=== PATIENT | male | born 2000 | race African-American/Black ===

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

== ENCOUNTER 2020-01-10 09:30 | Outpatient (CLI) | payer BC | END 2020-01-10 09:31 | disposition home or self-care (01) | LOC: COV 09:30 | PROVIDERS: ATTEND Family Medicine | DX: Z20.828 Contact with and (suspected) exposure to other viral communicable diseases (principal) ==

== ENCOUNTER 2020-01-29 12:59 | Outpatient (CLI) | payer BC ==
--- NOTE | 2020-01-29 15:23 | XRAY Report ---
PROCEDURE: Knee 3 View LT INDICATIONS: L KNEE PX TECHNIQUE: 3 views of the left knee were acquired. COMPARISON: None. FINDINGS: Bones: No acute fractures or dislocations. No suspicious bony lesions. Soft tissues: Small joint effusion. No suspicious soft tissue calcifications. IMPRESSION: No acute osseous abnormality. Small joint effusion. If there is continued clinical annelise rn or persistent symptoms, further evaluation with CT or MRI may be obtained. Reviewed by: Savage Clark MD on 01/29/2020 3:21 PM [facility] Approved by: Savage Clark MD on 01/29/2020 3:21 PM PST Station ID: [id number]
== END 2020-01-29 23:59 | disposition home or self-care (01) ==
LOC: DI.N 12:59
PROVIDERS: ATTEND Family Medicine
DX: M25.562 Pain in left knee (principal); M25.462 Effusion, left knee

== ENCOUNTER 2020-10-26 08:00 | Outpatient (CLI) | payer BC ==
[2020-10-26 13:49] LABS: BASOPHILS # (AUTO) 0.1 10^3/uL (0.0-0.1); BASOPHILS % (AUTO) 0.6 %; EOSINOPHILS # (AUTO) 0.1 10^3/uL (0.0-0.7); EOSINOPHILS % (AUTO) 0.7 %; HCT - HEMATOCRIT 42.8 % (42.0-52.0); LYMPHOCYTES # (AUTO) 2.8 10^3/uL (1.5-3.5); LYMPHOCYTES % (AUTO) 31.6 %; MEAN CORPUSCULAR HEMOGLOBIN 30.1 pg (27.0-31.0); MEAN CORPUSCULAR HGB CONC 32.7 g/dL (32.0-36.0); MEAN PLATELET VOLUME 11.2 fL (7.4-11.4); MONOCYTES # (AUTO) 0.5 10^3/uL (0.0-1.0); MONOCYTES % (AUTO) 5.4 %; NEUTROPHILS # (AUTO) 5.4 10^3/uL (1.5-6.6); NEUTROPHILS % (AUTO) 61.5 %; PLT - PLATELET COUNT 271 10^3/uL (130-450); RED BLOOD COUNT 4.65 10^6/uL (4.70-6.10); RED CELL DISTRIBUTION WIDTH 13.1 % (12.0-15.0); WHITE BLOOD COUNT 8.7 x10^3/uL (4.8-10.8)
[2020-10-26 14:00] LABS: ALBUMIN 4.8 g/dL (3.2-5.5); ALBUMIN/GLOBULIN RATIO 1.5 (1.0-2.2); BILIRUBIN,TOTAL 0.9 mg/dL (0.2-1.0); CALCIUM 9.7 mg/dL (8.5-10.3); CREATININE 0.9 mg/dL (0.6-1.2); POTASSIUM 3.7 mmol/L (3.5-5.0); TOTAL PROTEIN 8.1 g/dL (6.7-8.2)
== END 2020-10-26 23:59 | disposition home or self-care (01) ==
LOC: LAB.N 08:00
PROVIDERS: ATTEND Nurse Practitioner
DX: R20.2 Paresthesia of skin (principal)
CPT/HCPCS: 36415; 80053; 82550; 85025

== ENCOUNTER 2022-03-24 01:48 | Emergency (ER) | payer BC, OTHER ==
[2022-03-24 02:15] LABS: BASOPHILS # (AUTO) 0.2 10^3/uL (0.0-0.1); BASOPHILS % (AUTO) 1.3 %; EOSINOPHILS # (AUTO) 0.7 10^3/uL (0.0-0.7); EOSINOPHILS % (AUTO) 6.1 %; HCT - HEMATOCRIT 43.3 % (42.0-52.0); HGB - HEMOGLOBIN 14.1 g/dL (14.0-18.0); LYMPHOCYTES # (AUTO) 4.8 10^3/uL (1.5-3.5); LYMPHOCYTES % (AUTO) 41.1 %; MEAN CORPUSCULAR HEMOGLOBIN 29.6 pg (27.0-31.0); MEAN CORPUSCULAR HGB CONC 32.6 g/dL (32.0-36.0); MEAN CORPUSCULAR VOLUME 90.8 fL (80.0-94.0); MEAN PLATELET VOLUME 10.1 fL (7.4-11.4); MONOCYTES % (AUTO) 8.4 %; NEUTROPHILS % (AUTO) 42.8 %; PLT - PLATELET COUNT 306 10^3/uL (130-450); RED BLOOD COUNT 4.77 10^6/uL (4.70-6.10); RED CELL DISTRIBUTION WIDTH 12.8 % (12.0-15.0); WHITE BLOOD COUNT 11.7 x10^3/uL (4.8-10.8)
[2022-03-24 02:28] LABS: ALBUMIN 4.4 g/dL (3.2-5.5); ALBUMIN/GLOBULIN RATIO 1.2 (1.0-2.2); BILIRUBIN,TOTAL 0.6 mg/dL (0.2-1.0); CALCIUM 9.4 mg/dL (8.5-10.3); POTASSIUM 3.3 mmol/L (3.5-5.0); TOTAL PROTEIN 8.1 g/dL (6.7-8.2)
[2022-03-24] MEDS ORDERED: KETOROLAC 15 MG/ML VIAL IVP STA (02:39)
[2022-03-24] MEDS ORDERED: SODIUM CHLORIDE 0.9% 1,000 ML IV STA ×2 (02:39→04:27)
--- NOTE | 2022-03-24 02:42 | ED Physician Documentation ---
History of Present Illness - Stated complaint Stated Complaint: ABD PX - Chief complaint Chief Complaint: Abd Pain - History obtained from History obtained from: Patient - Additonal information Additional information: 21-year-old male with history of kidney stones presents with right flank pain radiating to right lower quadrant starting 1 hour prior to arrival, sudden onset, sharp, 8 out of 10 severity. Denies urinary symptoms, fever. Review of Systems Constitutional: denies: Fever GI: reports: Abdominal Pain. denies: Nausea, Vomiting, Diarrhea : denies: Dysuria PD PAST MEDICAL HISTORY - Past Medical History Cardiovascular: None Respiratory: None Neuro: None Endocrine/Autoimmune: None GI: None : Kidney stones HEENT: None Psych: ADD/ADHD Musculoskeletal: None Derm: None - Past Surgical History Past Surgical History: No - Present Medications Home Medications: Ambulatory Orders Medication Instructions Recorded Confirmed Dextroamphetamine/Amphetamine 50 mg DAILY 08/18/17 08/18/17 [Mydayis ER 50 mg Capsule] Guanfacine HCl [Intuniv] 1 mg DAILY 08/18/17 08/18/17 HYDROcod/ACETAM 5/325 [[place] 5/325] 1 - 2 ea PO Q6H PRN #15 tablet 08/18/17 Ibuprofen [Motrin] 800 mg PO Q8H PRN #30 tablet 08/18/17 ondansetron HCL [Zofran] 4 mg PO Q6H PRN #10 tablet 08/18/17 Hydrocodone/Acetaminophen 1 each PO Q6HR PRN #10 tablet 11/05/19 [Hydrocodone-Acetamin 5-325 mg] - Allergies Allergies/Adverse Reactions: Allergies Allergy/AdvReac Type Severity Reaction Status Date / Time No Known Drug Allergies Allergy Verified 03/24/22 01:59 - Social History Does the pt smoke?: No Smoking Status: Never smoker Does the pt drink ETOH?: No Does the pt have substance abuse?: No - Immunizations Immunizations are current?: Yes - POLST Patient has POLST: No PD ED PE NORMAL - Vitals Vital signs reviewed: Yes - General General: Alert and oriented X 3, No acute distress, Well developed/nourished - HEENT HEENT: Atraumatic, PERRL, EOMI - Abdomen Abdomen: Non tender, Non distended, Other (Discomfort right lower quadrant) - Back Back: No CVA TTP - Derm Derm: Normal color, Warm and dry Results - Vitals Vitals: Vital Signs - 24 hr 03/24/22 03/24/22 01:51 04:52 Temperature 36.2 C L Heart Rate 88 67 Respiratory 22 18 Rate Blood Pressure 133/102 H 136/81 H O2 Saturation 98 100 Oxygen O2 Source Room air - Labs Labs: Laboratory Tests 03/24/22 03/24/22 03/24/22 02:07 02:07 04:47 WBC 11.7 H RBC 4.77 Hgb 14.1 Hct 43.3 MCV 90.8 MCH 29.6 MCHC 32.6 RDW 12.8 Plt Count 306 MPV 10.1 Neut # (Auto) 5.0 Lymph # (Auto) 4.8 H [place] # (Auto) 1.0 Eos # (Auto) 0.7 Baso # (Auto) 0.2 H Absolute Nucleated RBC 0.00 Nucleated RBC % 0.0 Sodium 139 Potassium 3.3 L Chloride 103 Carbon Dioxide 24 Anion Gap 12.0 BUN 12 Creatinine 1.0 Estimated GFR (MDRD) 114 Glucose 122 H Calcium 9.4 Total Bilirubin 0.6 AST 51 H ALT 21 Alkaline Phosphatase 60 Total Protein 8.1 Albumin 4.4 Globulin 3.7 Albumin/Globulin Ratio 1.2 Lipase 34 Urine Color YELLOW Urine Clarity CLEAR Urine pH 6.0 Ur Specific [place] 1.010 Urine Protein NEGATIVE Urine Glucose (UA) NEGATIVE Urine Ketones NEGATIVE Urine Occult Blood LARGE H Urine Nitrite NEGATIVE Urine Bilirubin NEGATIVE Urine Urobilinogen 0.2 (NORMAL) Ur Leukocyte Esterase NEGATIVE Urine RBC TNTC H Urine WBC 0-3 Ur Squamous Epith Cells RARE Squamous Urine Bacteria Rare Urine Yeast PRESENT Ur Microscopic Review INDICATED Urine Culture Comments NOT INDICATED PD Medical Decision Making - ED course ED course: 21-year-old male presents with recurrent renal stones. renal function normal. Plan to follow-up outpatient urology. Return precautions given. Departure - Departure Clinical Impression: Kidney stones, Abdominal pain Instructions: Kidney Stones
[2022-03-24] MEDS ORDERED: iohexoL-300 100 ML VIAL ONE (02:47)
[2022-03-24] MEDS ORDERED: iohexoL-300 100 ML VIAL IVP ONE (03:28)
[2022-03-24 04:59] LABS: BILIRUBIN,URINE NEGATIVE (NEGATIVE); GLUCOSE, URINE (UA) NEGATIVE (NEGATIVE); KETONES,URINE (UA) NEGATIVE (NEGATIVE); LEUKOCYTE ESTERASE, URINE NEGATIVE (NEGATIVE); NITRITE,URINE NEGATIVE (NEGATIVE); OCCULT BLOOD,URINE LARGE (NEGATIVE); PROTEIN,URINE NEGATIVE (NEGATIVE); UROBILINOGEN,URINE 0.2 (NORMAL) E.U./dL (NORMAL)
[2022-03-24 05:07] LABS: BACTERIA,URINE Rare /HPF (None Seen); CLARITY,URINE CLEAR (CLEAR); RBC,URINE TNTC /HPF (0-5); SQUAMOUS EPITHELIAL CELL,UR RARE Squamous (<= Few); WBC,URINE 0-3 /HPF (0-3); YEAST,URINE PRESENT
[2022-03-24 05:34] VITALS: BP 144/91
--- NOTE | 2022-03-24 08:45 | CT Report ---
PROCEDURE: ABDOMEN/PELVIS W INDICATIONS: Abdominal pain, acute, nonlocalized CONTRAST: Omni 300 100ml TECHNIQUE: After the administration of IV contrast, 5 mm thick sections acquired from the diaphragms to the symp hysis. 5 mm thick coronal and sagittal reformats were acquired. For radiation dose reduction, the f ollowing was used: automated exposure control, adjustment of mA and/or kV according to patient size. COMPARISON: None. FINDINGS: Image quality: Excellent. ABDOMEN: Lung bases: Lung bases are clear. Heart size is normal. Solid organs: Liver and spleen are normal in size and enhancement. Gallbladder is unremarkable Tj iary system is non dilated. Pancreas enhances normally. No adrenal nodules. There is a 3 mm proxima l right ureteral calculus with mild hydronephrosis and proximal hydroureter. Left kidney is unremarka ble. Peritoneum and bowel: Bowel loops demonstrate normal wall thickness and caliber. No free fluid or a ir. Nodes and vessels: No retroperitoneal or mesenteric adenopathy by size criteria. Aorta and inferior vena cava are normal in size. Miscellaneous: No ventral hernias. PELVIS: Genitourinary: Bladder wall thickness is normal. Miscellaneous: No inguinal hernias or adenopathy. Bones: No suspicious bony lesions. No vertebral body compression fractures. IMPRESSION: Mild left hydronephrosis and proximal hydroureter secondary to 3 mm proximal ureteral calculus. The above findings are concordant with preliminary report. Reviewed by: Felisha Zabala MD on 03/24/2022 8:43 AM PST Approved by: Felisha Zabala MD on 03/24/2022 8:43 AM PST Station ID: [id number]
== END 2022-03-24 05:29 | disposition home or self-care (01) ==
LOC: ED 01:48
DX: N13.2 Hydronephrosis with renal and ureteral calculous obstruction (principal); Z87.442 Personal history of urinary calculi
CPT/HCPCS: 36415; 74177; 80053; 81001; 83690; 85025; 96374; 99283; 99284; Q9967; 81003; 87086

== ENCOUNTER 2022-03-25 06:12 | Emergency (ER) | payer OTHER ==
[2022-03-25 06:57] VITALS: BP 151/131
[2022-03-25] MEDS ORDERED: KETOROLAC 30 MG/ML VIAL IVP STA (07:48)
[2022-03-25] MEDS ORDERED: HYDROmorphone 1 MG/ML CARPUJECT IVP STA (07:48)
[2022-03-25] MEDS ORDERED: SODIUM CHLORIDE 0.9% 1,000 ML IV STA (07:48)
--- NOTE | 2022-03-25 08:28 | ED Physician Documentation ---
History of Present Illness - Stated complaint Stated Complaint: ABD PX - Chief complaint Chief Complaint: Abd Pain - History obtained from History obtained from: Patient - Additonal information Additional information: The patient comes to the emergency department chief complaint of right lower quadrant pain that has migrated over the last couple days from his right back and flank. The patient was diagnosed with a kidney stone a couple of days ago and has been on Flomax and narcotics at home. His last dose of Flomax was yesterday afternoon. He states he believes he is partly to blame for the pain because he went too long between doses of pain meds. However, he has noticed for an migration more anteriorly and lower. The patient denies any fevers, chills, or dysuria. He states his nausea is fairly well controlled unless he has a big wave of pain, but he has not been vomiting. Patient states he is here today because the pain suddenly got worse overnight as it moved down. He did not sleep all night and just wants some pain relief. Review of Systems Constitutional: reports: Reviewed and negative Eyes: reports: Reviewed and negative Ears: reports: Reviewed and negative Nose: reports: Reviewed and negative Throat: reports: Reviewed and negative Cardiac: reports: Reviewed and negative Respiratory: reports: Reviewed and negative GI: reports: Abdominal Pain, Nausea : reports: Reviewed and negative Skin: reports: Reviewed and negative Musculoskeletal: reports: Reviewed and negative Neurologic: reports: Reviewed and negative Psychiatric: reports: Reviewed and negative Endocrine: reports: Reviewed and negative Immunocompromised: reports: Reviewed and negative PD PAST MEDICAL HISTORY - Past Medical History Cardiovascular: None Respiratory: None Neuro: None Endocrine/Autoimmune: None GI: None : Kidney stones HEENT: None Psych: ADD/ADHD Musculoskeletal: None Derm: None - Past Surgical History Past Surgical History: No - Present Medications Home Medications: Ambulatory Orders Medication Instructions Recorded Confirmed Dextroamphetamine/Amphetamine 50 mg DAILY 08/18/17 08/18/17 [Mydayis ER 50 mg Capsule] Guanfacine HCl [Intuniv] 1 mg DAILY 08/18/17 08/18/17 HYDROcod/ACETAM 5/325 [[place] 5/325] 1 - 2 ea PO Q6H PRN #15 tablet 08/18/17 Ibuprofen [Motrin] 800 mg PO Q8H PRN #30 tablet 08/18/17 ondansetron HCL [Zofran] 4 mg PO Q6H PRN #10 tablet 08/18/17 Hydrocodone/Acetaminophen 1 each PO Q6HR PRN #10 tablet 11/05/19 [Hydrocodone-Acetamin 5-325 mg] Ketorolac [Toradol] 10 mg PO Q6H PRN #30 tablet 03/24/22 Tamsulosin [Flomax] 0.4 mg PO DAILY 14 Days #14 tab 03/24/22 - Allergies Allergies/Adverse Reactions: Allergies Allergy/AdvReac Type Severity Reaction Status Date / Time No Known Drug Allergies Allergy Verified 03/25/22 06:57 - Social History Does the pt smoke?: No Smoking Status: Never smoker Does the pt drink ETOH?: No Does the pt have substance abuse?: No - Immunizations Immunizations are current?: Yes - POLST Patient has POLST: No PD ED PE NORMAL - Vitals Vital signs reviewed: Yes - General General: Alert and oriented X 3, No acute distress, Well developed/nourished - HEENT HEENT: Atraumatic, PERRL, EOMI, Moist mucous membranes - Neck Neck: Supple, no meningeal sign - Cardiac Cardiac: RRR, No murmur, Strong equal pulses - Respiratory Respiratory: No respiratory distress, Clear bilaterally - Abdomen Abdomen: Soft, Non tender, Non distended - Derm Derm: Normal color, Warm and dry, No rash - Extremities Extremities: No deformity, No edema - Neuro Neuro: Alert and oriented X 3 - Psych Psych: Normal mood, Normal affect Results - Vitals Vitals: Oxygen O2 Source Room air PD Medical Decision Making - ED course Complexity details: considered differential, d/w patient ED course: The patient was treated symptomatically with IV Dilaudid and Toradol, as well as IV fluids and found to be feeling much better on reevaluation. He is stable for discharge home. I have discussed with him that I suspect his stone is making its way through his ureter and most likely, with the escalation in pain and the movement of pain down to the right lower quadrant, that the stone is most likely at the UVJ. We have discussed the need to drink plenty of fluids to increase the pressure to move the stone. We have discussed the usual indications for return. Departure - Departure Disposition: 01 Home, Self Care Clinical Impression: Kidney stone Condition: Stable Instructions: ED Stone Renal W Colic Discharge Date/Time: 03/25/22 09:17
== END 2022-03-25 09:17 | disposition home or self-care (01) ==
LOC: ED 06:12
DX: N20.0 Calculus of kidney (principal)
CPT/HCPCS: 96361; 96374; 99284; J1170

== ENCOUNTER 2022-06-11 14:26 | Emergency (ER) | payer OTHER ==
[2022-06-11 14:54] LABS: BASOPHILS # (AUTO) 0.1 10^3/uL (0.0-0.1); BASOPHILS % (AUTO) 0.8 %; EOSINOPHILS # (AUTO) 0.1 10^3/uL (0.0-0.7); EOSINOPHILS % (AUTO) 1.3 %; HCT - HEMATOCRIT 43.3 % (42.0-52.0); HGB - HEMOGLOBIN 14.3 g/dL (14.0-18.0); LYMPHOCYTES # (AUTO) 1.6 10^3/uL (1.5-3.5); LYMPHOCYTES % (AUTO) 20.1 %; MEAN CORPUSCULAR HEMOGLOBIN 29.4 pg (27.0-31.0); MEAN CORPUSCULAR VOLUME 89.1 fL (80.0-94.0); MEAN PLATELET VOLUME 10.1 fL (7.4-11.4); MONOCYTES # (AUTO) 0.5 10^3/uL (0.0-1.0); MONOCYTES % (AUTO) 6.5 %; NEUTROPHILS # (AUTO) 5.7 10^3/uL (1.5-6.6); PLT - PLATELET COUNT 281 10^3/uL (130-450); RED BLOOD COUNT 4.86 10^6/uL (4.70-6.10); RED CELL DISTRIBUTION WIDTH 12.4 % (12.0-15.0)
[2022-06-11 14:56] LABS: BILIRUBIN,URINE NEGATIVE (NEGATIVE); GLUCOSE, URINE (UA) NEGATIVE (NEGATIVE); KETONES,URINE (UA) NEGATIVE (NEGATIVE); LEUKOCYTE ESTERASE, URINE NEGATIVE (NEGATIVE); NITRITE,URINE NEGATIVE (NEGATIVE); OCCULT BLOOD,URINE MODERATE (NEGATIVE); PROTEIN,URINE 100 mg/dL (NEGATIVE); UROBILINOGEN,URINE 0.2 (NORMAL) E.U./dL (NORMAL)
[2022-06-11 14:57] LABS: CLARITY,URINE HAZY (CLEAR)
[2022-06-11 15:08] LABS: BACTERIA,URINE None Seen /HPF (None Seen); SQUAMOUS EPITHELIAL CELL,UR NONE SEEN (<= Few); WBC,URINE 0-3 /HPF (0-3)
[2022-06-11 15:10] LABS: ALBUMIN 4.5 g/dL (3.2-5.5); ALBUMIN/GLOBULIN RATIO 1.3 (1.0-2.2); BILIRUBIN,TOTAL 1.1 mg/dL (0.2-1.0); CALCIUM 9.5 mg/dL (8.5-10.3); CREATININE 1.1 mg/dL (0.6-1.2); POTASSIUM 3.7 mmol/L (3.5-5.0); TOTAL PROTEIN 8.1 g/dL (6.7-8.2)
--- NOTE | 2022-06-11 15:28 | CT Report ---
PROCEDURE: ABDOMEN/PELVIS WO INDICATIONS: flank pain TECHNIQUE: Noncontrast 5 mm thick sections acquired from the diaphragms to the symphysis. 5 mm coronal and sagi ttal reformats were then performed. For radiation dose reduction, the following was used: automated exposure control, adjustment of mA and/or kV according to patient size. COMPARISON: CT abdomen pelvis 03/24/2022 FINDINGS: Image quality: Excellent. Lung bases and heart: Unremarkable. ABDOMEN Liver: Unremarkable. Gallbladder and biliary tree: Unremarkable. Spleen: Unremarkable. Pancreas: Unremarkable. Adrenals: Unremarkable. Kidneys: There is mild appearance of right hydronephrosis and hydroureter. Bowel and peritoneum: No bowel distension. No pathologic free fluid. Appendix is normal. Lymph nodes: No central or retroperitoneal adenopathy. Vessels: Unremarkable. PELVIS Reproductive organs: Unremarkable. Bladder and ureters: 4 mm calcification is noted in the bladder distal to the ureterovesicular juncti on. Lymph nodes: Unremarkable. Bones: No aggressive osseous abnormality. Other: None IMPRESSION: Bladder stone with mild right hydronephrosis and hydroureter most suggestive of recently passed stone . Reviewed by: Felisha Zabala MD on 06/11/2022 3:27 PM PDT Approved by: Felisha Zabala MD on 06/11/2022 3:27 PM PDT Station ID: [id number]
[2022-06-11] MEDS ORDERED: KETOROLAC 30 MG/ML VIAL IVP STA (15:31)
--- NOTE | 2022-06-11 15:34 | ED Physician Documentation ---
PD HPI ABD PAIN - Stated complaint Stated Complaint: ABD PX - Chief complaint Chief Complaint: Abd Pain - Additional information Additional information: This is a very nice 21-year-old male who has a history of kidney stones who presents with sudden onset right flank pain rating into the groin since this morning. He States it feels exactly the same as his prior kidney stones. He has not attempted any medication for this. He has not had a fever, chills, chest pain or difficulty breathing, nausea, vomiting, diarrhea, dysuria urgency or frequency. He states that he is planning to see a urologist for his recurrent stones but he has not been able to do so yet.He has changed his diet though, no longer drinks soda or energy drinks and tries to increase his water consumption though states he does struggle to do this. Review of Systems Constitutional: reports: Reviewed and negative Cardiac: reports: Reviewed and negative Respiratory: reports: Reviewed and negative GI: reports: Reviewed and negative, Other (Right flank pain) : reports: Reviewed and negative Musculoskeletal: reports: Reviewed and negative Neurologic: reports: Reviewed and negative PD PAST MEDICAL HISTORY - Past Medical History Past Medical History: Yes Cardiovascular: None Respiratory: None Neuro: None Endocrine/Autoimmune: None GI: None : Kidney stones HEENT: None Psych: ADD/ADHD Musculoskeletal: None Derm: None - Past Surgical History Past Surgical History: No - Present Medications Home Medications: Ambulatory Orders Medication Instructions Recorded Confirmed Dextroamphetamine/Amphetamine 50 mg DAILY 08/18/17 08/18/17 [Mydayis ER 50 mg Capsule] Guanfacine HCl [Intuniv] 1 mg DAILY 08/18/17 08/18/17 HYDROcod/ACETAM 5/325 [[place] 5/325] 1 - 2 ea PO Q6H PRN #15 tablet 08/18/17 Ibuprofen [Motrin] 800 mg PO Q8H PRN #30 tablet 08/18/17 ondansetron HCL [Zofran] 4 mg PO Q6H PRN #10 tablet 08/18/17 Hydrocodone/Acetaminophen 1 each PO Q6HR PRN #10 tablet 11/05/19 [Hydrocodone-Acetamin 5-325 mg] Ketorolac [Toradol] 10 mg PO Q6H PRN #30 tablet 03/24/22 Tamsulosin [Flomax] 0.4 mg PO DAILY 14 Days #14 tab 03/24/22 - Allergies Allergies/Adverse Reactions: Allergies Allergy/AdvReac Type Severity Reaction Status Date / Time No Known Drug Allergies Allergy Verified 06/11/22 14:28 - Social History Does the pt smoke?: No Smoking Status: Never smoker Does the pt drink ETOH?: No Does the pt have substance abuse?: No - Immunizations Immunizations are current?: Yes - POLST Patient has POLST: No PD ED PE NORMAL - Vitals Vital signs reviewed: Yes - General General: Alert and oriented X 3, No acute distress, Well developed/nourished - HEENT HEENT: Atraumatic, Pharynx benign - Cardiac Cardiac: RRR, No murmur - Respiratory Respiratory: No respiratory distress, Clear bilaterally - Abdomen Abdomen: Normal bowel sounds, Soft, Non tender, Non distended, Other (No CVAT) - Back Back: No CVA TTP, No spinal TTP - Derm Derm: Normal color, Warm and dry, No rash - Neuro Neuro: Alert and oriented X 3 Eye Opening: Spontaneous Motor: Obeys Commands Verbal: Oriented GCS Score: 15 - Psych Psych: Normal mood, Normal affect Results - Vitals Vitals: Vital Signs - 24 hr 06/11/22 06/11/22 14:29 15:41 Temperature 36.5 C 36.7 C Heart Rate 85 72 Respiratory 18 18 Rate Blood Pressure 136/99 H 154/101 H O2 Saturation 100 100 Oxygen O2 Source Room air - Labs Labs: Laboratory Tests 06/11/22 06/11/22 06/11/22 14:45 14:45 14:45 WBC 8.0 RBC 4.86 Hgb 14.3 Hct 43.3 MCV 89.1 MCH 29.4 MCHC 33.0 RDW 12.4 Plt Count 281 MPV 10.1 Neut # (Auto) 5.7 Lymph # (Auto) 1.6 [place] # (Auto) 0.5 Eos # (Auto) 0.1 Baso # (Auto) 0.1 Absolute Nucleated RBC 0.00 Nucleated RBC % 0.0 Sodium 138 Potassium 3.7 Chloride 106 Carbon Dioxide 25 Anion Gap 7.0 BUN 11 Creatinine 1.1 Estimated GFR (MDRD) 102 Glucose 125 H Calcium 9.5 Total Bilirubin 1.1 H AST 41 ALT 18 Alkaline Phosphatase 58 Total Protein 8.1 Albumin 4.5 Globulin 3.6 Albumin/Globulin Ratio 1.3 Lipase 34 Urine Color YELLOW Urine Clarity HAZY Urine pH 7.0 Ur Specific [place] 1.020 Urine Protein 100 H Urine Glucose (UA) NEGATIVE Urine Ketones NEGATIVE Urine Occult Blood MODERATE H Urine Nitrite NEGATIVE Urine Bilirubin NEGATIVE Urine Urobilinogen 0.2 (NORMAL) Ur Leukocyte Esterase NEGATIVE Urine RBC 11-25 H Urine WBC 0-3 Ur Squamous Epith Cells NONE SEEN Urine Bacteria None Seen Ur Microscopic Review INDICATED Urine Culture Comments NOT INDICATED PD Medical Decision Making - ED course Complexity details: reviewed results, re-evaluated patient, considered differ ential, d/w patient ED course: 21-year-old male presented with right flank pain that started 7 this morning. It feels exactly the same as his prior kidney stones. He is well-appearing on physical exam, nontoxic but uncomfortable. We obtained labs which are reassuring, he has normal renal function, his urinalysis has blood but no signs of infection. I obtained a CT abdomen pelvis to evaluate for kidney stones and this showed signs of possible recently passed stone and mild right hydronephrosis. I discussed these findings with patient, he was given Toradol for pain and advised to continue to try to increase his water intake, take ibuprofen and Tylenol for pain. I suspect he has passed a stone and has some residual irritation that should improve over the next day or so. Advised that if he had ongoing or worsening pain to return to the ER or follow-up with urology. Departure - Departure Disposition: 01 Home, Self Care Clinical Impression: Bladder stone Condition: Good Instructions: ED Stone Renal Passed Comments: You presented with flank pain. Your CT shows that you likely recently passed a kidney stone. There can be some ridges you will inflammation and irritation in the ureters after the stone is passed. This typically responds well to ibuprofen and Tylenol for pain. Please stay well-hydrated. There are no signs of infection or other issues on your CT scan or lab work today.
[2022-06-11 15:42] VITALS: BP 154/101
== END 2022-06-11 15:57 | disposition home or self-care (01) ==
LOC: ED 14:26
DX: R31.9 Hematuria, unspecified (principal); N21.0 Calculus in bladder; N13.30 Unspecified hydronephrosis
CPT/HCPCS: 36415; 80053; 81001; 81003; 83690; 85025; 87086; 96374; 99284